=== PATIENT | female | born 1965 | race Caucasian/White ===

== ENCOUNTER 2021-06-17 09:42 | Outpatient (CLI) | payer BC | END 2021-06-17 09:43 | disposition home or self-care (01) | LOC: NM 09:42 | PROVIDERS: ATTEND Specialist | DX: T84.84XA Pain due to internal orthopedic prosthetic devices, implants and grafts, initial encounter (principal); M16.11 Unilateral primary osteoarthritis, right hip; Z96.643 Presence of artificial hip joint, bilateral | CPT/HCPCS: 78315; A9503 ==

== ENCOUNTER 2021-12-22 13:14 | Outpatient (CLI) | payer BC ==
[2021-12-23 00:25] LABS: SARS-CoV-2 PCR by NAA Not Detected (NotDetected)
== END 2021-12-22 13:15 | disposition home or self-care (01) ==
LOC: LABBT 13:14
PROVIDERS: ATTEND Family Medicine
DX: Z20.822 Contact with and (suspected) exposure to COVID-19 (principal)
CPT/HCPCS: U0003; U0005

== ENCOUNTER 2021-12-24 11:08 | Outpatient (CLI) | payer BC | END 2021-12-24 11:09 | disposition home or self-care (01) | PROVIDERS: ATTEND Internal Medicine Gastroenterology | DX: K21.9 Gastro-esophageal reflux disease without esophagitis (principal); R13.12 Dysphagia, oropharyngeal phase | CPT/HCPCS: 74230 ==

== ENCOUNTER → 2022-05-20 | Outpatient (CLI) | payer BC | LOC: CTENTCT 10:00 | PROVIDERS: ATTEND Otolaryngology Plastic Surgery within the Head & Neck | DX: J32.9 Chronic sinusitis, unspecified (principal) | CPT/HCPCS: 70486 ==